=== PATIENT | female | born 1970 | race American Indian/Alaskan Native ===

== ENCOUNTER 2020-04-21 09:54 | Emergency (ER) | payer OTHER ==
[~2020-04-21] VITALS: Ht 167.6 cm; Wt 95.2 kg
[~2020-04-21 09:54] MED LIST: METERG.2 PO; TRAM50 PO
[2020-04-21] MEDS ORDERED: OXYC5 PO (10:31)
[2020-04-21] MEDS ORDERED: AMOX500 PO (10:31)
== END 2020-04-21 10:42 | disposition home or self-care (01) ==
LOC: ER 09:54
DX: K04.7 Periapical abscess without sinus (principal); K02.9 Dental caries, unspecified
CPT/HCPCS: 99282

== ENCOUNTER 2020-04-27 11:17 | Emergency (ER) | payer OTHER ==
[~2020-04-27] VITALS: Ht 167.6 cm; Wt 95.2 kg
[~2020-04-27 11:17] MED LIST changes: +AMOX500 PO; +OXYC5 PO
[2020-04-27] MEDS ORDERED: Percocet 5-3251 EACH PO (11:37)
[2020-04-27] MEDS ORDERED: AMOCLA875 PO (11:37)
[2020-04-27] MEDS ORDERED: IBUP800 PO (11:37)
== END 2020-04-27 11:45 | disposition home or self-care (01) ==
LOC: ER 11:17
DX: K04.7 Periapical abscess without sinus (principal)
CPT/HCPCS: 99282

== ENCOUNTER 2023-01-15 13:16 | Emergency (ER) | payer OTHER ==
[~2023-01-15] VITALS: Ht 167.6 cm; Wt 95.2 kg
[~2023-01-15 13:16] MED LIST changes: +AMOCLA875 PO; +IBUP800 PO; +Percocet 5-3251 EACH PO
[2023-01-15 13:26] VITALS: BP 156/88
[2023-01-15] MEDS ORDERED: Prednisone20 MG PO (15:38)
[2023-01-15] MEDS ORDERED: VALACYCLOVIR1000 MG PO (15:38)
[2023-01-15] MEDS ORDERED: LIDO700A20 TOP (15:38)
[2023-01-15] MEDS ORDERED: HYDR1TAB94 PO (15:38)
== END 2023-01-15 15:47 | disposition home or self-care (01) ==
LOC: ER 13:16
DX: B02.9 Zoster without complications (principal)
CPT/HCPCS: 99282; A9270

== ENCOUNTER 2024-12-07 18:03 | Emergency (ER) | payer OTHER ==
[~2024-12-07] VITALS: Ht 167.6 cm; Wt 81.7 kg
[~2024-12-07 18:03] MED LIST changes: +HYDR1TAB94 PO; +LIDO700A20 TOP; +Prednisone20 MG PO; +VALACYCLOVIR1000 MG PO
[2024-12-07 18:28] VITALS: BP 180/98
[2024-12-07 19:18] LABS: BASOPHILS ABSOLUTE AUTO 0.03 K/mm3 (0.00-0.23); BASOPHILS PERCENT AUTO 0 % (0-2); EOSINOPHILS ABSOLUTE AUTO 0.09 K/mm3 (0.00-0.68); EOSINOPHILS PERCENT AUTO 1 % (0-6); Hematocrit 41.9 % (33.0-51.0); Hemoglobin 14.4 g/dL (11.5-16.0); IMMATURE GRAN ABSOLUTE AUTO 0.06 K/mm3 (0.00-0.10); IMMATURE GRAN PERCENT AUTO 1 % (0-1); LYMPHOCYTES ABSOLUTE AUTO 2.34 K/mm3 (0.84-5.20); LYMPHOCYTES PERCENT AUTO 26 % (21-46); MONOCYTES ABSOLUTE AUTO 0.80 K/mm3 (0.16-1.47); MONOCYTES PERCENT AUTO 9 % (4-13); Mean Corpuscular HGB Conc 34.4 g/dL (31.5-36.5); Mean Corpuscular Volume 89 fL (80-100); NEUTROPHILS ABSOLUTE AUTO 5.54 K/mm3 (1.96-9.15); NEUTROPHILS PERCENT AUTO 63 % (41-73); NRBC ABSOLUTE 0.00 K/mm3 (0.00-0.02); NRBC Auto 0.0 /100 WBC (0.0-0.2); Platelet Count 265 K/mm3 (150-400); RDW Coefficient Variation 11.9 % (11.7-14.2); RDW Standard Deviation 38.5 fL (35.1-46.3)
[2024-12-07 19:32] LABS: Alanine Aminotransfer (ALT/SGP 18.0 U/L (12-78); Albumin, Blood 3.2 g/dL (3.4-5.0); Albumin/Globulin Ratio 0.7 (0.8-1.8); Anion Gap 5.0 mmol/L (3-11); Aspartate Aminotrans (AST/SGOT 10.0 U/L (12-37); Bilirubin, Total 0.6 mg/dL (0.1-1.0); Blood Urea Nitrogen 11.0 mg/dL (8-24); CO2, Blood 24.0 mmol/L (21-32); Calcium, Blood 9.2 mg/dL (8.5-10.1); Chloride, Blood 104.0 mmol/L (98-108); Creatinine, Blood 0.53 mg/dL (0.40-1.00); Globulin, Blood 4.8 g/dL (2.2-4.0); Glucose, Blood 271.0 mg/dL (70-99); Potassium, Blood 3.9 mmol/L (3.5-5.5); Sodium, Blood 129.0 mmol/L (136-145); Total Protein, Blood 8.0 g/dL (6.4-8.2)
[2024-12-07] MEDS ORDERED: Ketorolac Tromethamine 30mg Vial IV ONE (21:40)
[2024-12-07] MEDS ORDERED: RX Prepack 6 Tabs Oxycodone 5mg UD ONE (21:40)
[2024-12-07] MEDS ORDERED: AMOCLA875 PO (21:45)
[2024-12-08] MEDS ORDERED: ONDA4ODT MM (18:05)
== END 2024-12-07 22:07 | disposition home or self-care (01) ==
LOC: ER 18:03
PROVIDERS: Student in an Organized Health Care Education/Training Program
DX: K04.7 Periapical abscess without sinus (principal); R73.9 Hyperglycemia, unspecified; E04.1 Nontoxic single thyroid nodule
CPT/HCPCS: 70487; 80053; 83605; 85025; A9270; J1885; Q9967

== ENCOUNTER 2024-12-08 16:57 | Emergency (ER) | payer OTHER ==
[~2024-12-08] VITALS: Ht 167.6 cm; Wt 81.7 kg
[2024-12-08 17:12] VITALS: BP 109/70
[2024-12-08] MEDS ORDERED: ONDA4ODT MM (18:05)
[2024-12-08] MEDS ORDERED: RX Prepack 2 Tabs Ondansetron ODT 4MG UD ONE (18:10)
== END 2024-12-08 18:47 | disposition home or self-care (01) ==
LOC: ER 16:57
DX: F41.9 Anxiety disorder, unspecified (principal); T40.2X5A Adverse effect of other opioids, initial encounter; T39.315A Adverse effect of propionic acid derivatives, initial encounter
CPT/HCPCS: 93005; 93010; 99283-25; A9270